=== PATIENT | male | born 1950 | race Caucasian/White ===

== ENCOUNTER 2018-02-26 10:27 | Day surgery (SDC) | payer MEDICARE, BC ==
[2018-02-26] MEDS ORDERED: LIDOCAINE 2% MDV (20MG/ML) 20ML VIAL IV ONE (10:28)
[2018-02-26] MEDS ORDERED: PROPOFOL 10 MG/ML VIAL IV ONE (10:28)
--- NOTE | 2018-03-03 16:40 | Operative Note ---
DATE OF SURGERY: OPERATION: COLONOSCOPY with cold snare polypectomy x2. PREOPERATIVE DIAGNOSIS: History of polyps. POSTOPERATIVE DIAGNOSES: 1. Rectosigmoid colon polyps x2, status post cold snare removal x2. 2. Internal hemorrhoids, medium. 3. Few ascending colon diverticula. PROCEDURE: After informed consent was obtained from the patient, he was placed in the left lateral decubitus position in the endoscopy suite, sedated and monitored by the department of anesthesia. Digital rectal exam was unremarkable. A well-lubricated [id number] colonoscope was inserted into the rectum and advanced to the cecum. Preparation quality was excellent. The cecum, cecal bulb, and ascending colon were unremarkable other than a few ascending colon diverticula. The transverse colon and descending colon were unremarkable. In the rectosigmoid colon there were 2 polyps ranging in size from 4-5 mm each removed with a cold snare. Minimal bleeding was noted at the sites. Forward and J-turn views of the rectum and anorectum were unremarkable other than medium-sized internal hemorrhoids. The endoscope was straightened, the rectal ampulla deflated, and the endoscope was removed. RECOMMENDATIONS: I would suggest the patient resume his medications and diet. He should undergo repeat exam in 3-5 years pending tissue histology. As always, thank you for allowing me to participate in the healthcare of your patients. CC: Dr. Arden MERCADO
== END 2018-02-26 12:15 | disposition home or self-care (01) ==
LOC: HOP 10:27
PROVIDERS: ATTEND Internal Medicine Gastroenterology
DX: Z12.11 Encounter for screening for malignant neoplasm of colon (principal); Z86.010 Personal history of colon polyps; D12.7 Benign neoplasm of rectosigmoid junction; K64.8 Other hemorrhoids; K57.30 Diverticulosis of large intestine without perforation or abscess without bleeding; E78.00 Pure hypercholesterolemia, unspecified